=== PATIENT | female | born 1955 | race Caucasian/White ===

== ENCOUNTER 2020-10-04 11:50 | Inpatient (IN) | payer MEDICAID, MEDICARE, OTHER ==
[~2020-10-04] VITALS: Ht 144.8 cm; Wt 71.7 kg
[2020-10-04] MEDS ORDERED: SODIUM CHLORIDE 0.9% 1000ML BAG (SEPSIS BOLUS) IV ONE (12:45)
[2020-10-04] MEDS ORDERED: NITROGLYCERIN OINT 1GM/INCH UDPKT TD ONE (12:45)
[2020-10-04] MEDS ORDERED: ASPIRIN 81MG TABLET PO ONE (12:45)
[2020-10-04] MEDS ORDERED: FUROSEMIDE 40MG/4ML VIAL IV ONE (12:45)
[2020-10-04 13:21] LABS: BASOPHILS % 0.7 % (0.0-2.0); EOSINOPHILS % 3.7 % (0.0-5.0); HEMATOCRIT. 39.6 % (36.0-48.0); HEMOGLOBIN. 13.3 g/dL (12.0-16.0); LYMPHOCYTES % 21.7 % (20.0-50.0); MEAN CORPUSCULAR HEMOGLOBIN 29.6 pg (28.0-32.0); MEAN CORPUSCULAR VOLUME 88.4 fL (81.0-99.0); MEAN PLATELET VOLUME 9.1 fl (7.4-10.4); MONOCYTES % 4.8 % (2.0-8.0); NEUTROPHILS % 69.1 % (40.0-76.0); PLATELET 219 x1000/uL (130-400); RED BLOOD CELL COUNT 4.48 mill/uL (4.2-5.4); RED CELL DISTRIBUTION WIDTH 13.3 % (11.6-14.6)
[2020-10-04 13:23] LABS: CLARITY URINE CLEAR (CLEAR); COLOR URINE YELLOW (YELLOW); KETONES URINE NEGATIVE (NEGATIVE); LEUKOCYTE ESTERASE URINE NEGATIVE (NEGATIVE); NITRITE URINE NEGATIVE (NEGATIVE); OCCULT BLOOD URINE NEGATIVE (NEGATIVE); PROTEIN URINE NEGATIVE (NEGATIVE); SPECIFIC GRAVITY URINE 1.025 (1.005-1.030); UROBILINOGEN URINE 0.2 E.U./dL (0.2-1.0)
[2020-10-04 13:27] LABS: CHLORIDE 107 mEq/L (98-107)
[2020-10-04 15:13] LABS: PARTIAL THROMBOPLASTIN TIME 27.2 sec (23.4-31.0); PROTHROMBIN TIME 10.6 sec (9.6-11.0)
[2020-10-04] MEDS: SACUBITRIL/VALSARTAN 49MG/51MG TABLET PO SCH ×2 (15:28→21:56)
[2020-10-04] MEDS ORDERED: CLONIDINE 0.1MG TABLET PO PRN (17:45)
[2020-10-04] MEDS ORDERED: ONDANSETRON HCL 4MG/2ML INJ IV PRN (17:45)
[2020-10-04] MEDS ORDERED: DIPHENHYDRAMINE 50MG/ML VIAL IV PRN (17:45)
[2020-10-04] MEDS ORDERED: IPRATROPIUM/ALBUTEROL 0.5-3(2.5)MG/3ML NEB HHN PRN (17:45)
[2020-10-04] MEDS: ENOXAPARIN 40MG/0.4ML SYR SUBCUT SCH (18:24)
[2020-10-04] MEDS: CARVEDILOL 3.125 MG TABLET PO SCH (21:55)
[2020-10-04] MEDS: FUROSEMIDE 40MG/4ML VIAL IVP SCH (21:55)
[2020-10-05] VITALS (7 sets, daily range): BP systolic 100–133; BP diastolic 48–70
[2020-10-05] MEDS ORDERED: COR25 PO (02:00)
[2020-10-05] MEDS ORDERED: AMLO5TAB88 PO (02:00)
[2020-10-05] MEDS ORDERED: TOPUD PO (02:00)
[2020-10-05] MEDS ORDERED: ASPI-1497 PO (02:00)
[2020-10-05] MEDS ORDERED: FURO-151 PO (02:00)
[2020-10-05] MEDS ORDERED: ACET650T37 PO (02:00)
[2020-10-05] MEDS ORDERED: HYDR-4134 PO (02:00)
[2020-10-05] MEDS ORDERED: SACU1TAB7 PO (02:00)
[2020-10-05] MEDS: ACETAMINOPHEN 325MG TABLET PO PRN ×2 (02:59→12:42)
[2020-10-05 07:20] LABS: BASOPHILS % 0.3 % (0.0-2.0); EOSINOPHILS % 0.5 % (0.0-5.0); HEMATOCRIT. 44.6 % (36.0-48.0); HEMOGLOBIN. 14.9 g/dL (12.0-16.0); LYMPHOCYTES % 11.4 % (20.0-50.0); MEAN CORPUSCULAR HEMOGLOBIN 29.9 pg (28.0-32.0); MEAN CORPUSCULAR VOLUME 89.1 fL (81.0-99.0); MEAN PLATELET VOLUME 9.7 fl (7.4-10.4); MONOCYTES % 3.1 % (2.0-8.0); NEUTROPHILS % 84.7 % (40.0-76.0); PLATELET 242 x1000/uL (130-400); RED CELL DISTRIBUTION WIDTH 13.4 % (11.6-14.6)
[2020-10-05] MEDS: ASPIRIN 81MG TABLET PO SCH (09:27)
[2020-10-05] MEDS: CARVEDILOL 3.125 MG TABLET PO SCH ×2 (09:27→20:44)
[2020-10-05] MEDS: FUROSEMIDE 40MG/4ML VIAL IVP SCH ×2 (09:27→17:36)
[2020-10-05] MEDS: SACUBITRIL/VALSARTAN 49MG/51MG TABLET PO SCH ×2 (12:42→20:44)
[2020-10-05] MEDS: ENOXAPARIN 40MG/0.4ML SYR SUBCUT SCH (17:36)
[2020-10-05] MEDS ORDERED: ATORVASTATIN CALCIUM 10MG TABLET PO SCH (21:00)
[2020-10-05] MEDS: FAMOTIDINE 20MG TABLET PO SCH (21:32)
[2020-10-06] VITALS: BP 109/62
[2020-10-06 04:00] VITALS: BP 118/52
[2020-10-06 07:14] LABS: CHLORIDE 101 mEq/L (98-107)
[2020-10-06 07:15] LABS: BASOPHILS % 0.5 % (0.0-2.0); EOSINOPHILS % 6.3 % (0.0-5.0); HEMATOCRIT. 44.3 % (36.0-48.0); HEMOGLOBIN. 14.5 g/dL (12.0-16.0); LYMPHOCYTES % 27.3 % (20.0-50.0); MEAN CORPUSCULAR HEMOGLOBIN 29.4 pg (28.0-32.0); MEAN CORPUSCULAR VOLUME 89.6 fL (81.0-99.0); MEAN PLATELET VOLUME 9.7 fl (7.4-10.4); MONOCYTES % 5.1 % (2.0-8.0); NEUTROPHILS % 60.8 % (40.0-76.0); PLATELET 233 x1000/uL (130-400); RED BLOOD CELL COUNT 4.95 mill/uL (4.2-5.4); RED CELL DISTRIBUTION WIDTH 13.5 % (11.6-14.6)
[2020-10-06 08:00] VITALS: BP 115/49
[2020-10-06] MEDS: CARVEDILOL 3.125 MG TABLET PO SCH (08:10)
[2020-10-06] MEDS: FUROSEMIDE 40MG/4ML VIAL IVP SCH ×2 (08:11→17:10)
[2020-10-06] MEDS ORDERED: POTASSIUM CHLORIDE 20MEQ TABLET SR PO NR (08:30)
[2020-10-06] MEDS: FAMOTIDINE 20MG TABLET PO SCH (10:01)
[2020-10-06] MEDS: ASPIRIN 81MG TABLET PO SCH (10:01)
[2020-10-06] MEDS: SACUBITRIL/VALSARTAN 49MG/51MG TABLET PO SCH (10:01)
[2020-10-06] MEDS ORDERED: POTA20TA82 PO (11:57)
[2020-10-06] MEDS ORDERED: ATOR10TA PO (11:57)
[2020-10-06 12:00] VITALS: BP 109/49
[2020-10-06] MEDS ORDERED: GUAIFENESIN-DM 200MG-20MG/10ML UDC PO NR (15:45)
[2020-10-06 16:00] VITALS: BP 103/57
[2020-10-06] MEDS: ENOXAPARIN 40MG/0.4ML SYR SUBCUT SCH (17:11)
[2020-10-06 17:28] VITALS: BP 103/57
== END 2020-10-06 18:15 | disposition home or self-care (01) | DRG 133 ==
LOC: ER 11:50 → 5WST 17:19 → ENRESERV 22:06
PROVIDERS: ADMIT Internal Medicine; ATTEND Internal Medicine
DX: J96.00 Acute respiratory failure, unspecified whether with hypoxia or hypercapnia (principal); I50.23 Acute on chronic systolic (congestive) heart failure; I27.20 Pulmonary hypertension, unspecified; I42.0 Dilated cardiomyopathy; I11.0 Hypertensive heart disease with heart failure; E78.5 Hyperlipidemia, unspecified; I08.0 Rheumatic disorders of both mitral and aortic valves; E66.9 Obesity, unspecified; I47.1 Supraventricular tachycardia; Z20.822 Contact with and (suspected) exposure to COVID-19; Z68.34 Body mass index [BMI] 34.0-34.9, adult; Z79.82 Long term (current) use of aspirin; Z79.899 Other long term (current) drug therapy
CPT/HCPCS: 36415; 71045; 80048; 80053; 80061; 81003; 83605; 83735; 83880; 84145; 84443; 84484; 85025; 93005; 93970; 99285; C9803; J1650; J1940; J2405; J7030; U0003; U0005

== ENCOUNTER 2021-02-17 11:25 | Inpatient (IN) | payer MEDICARE, OTHER ==
[~2021-02-17] VITALS: Ht 154.9 cm; Wt 87.1 kg
[~2021-02-17 11:25] MED LIST: ACET650T37 PO; ASPI-1497 PO; ATOR10TA PO; FURO-151 PO; POTA20TA82 PO; SACU1TAB7 PO; TOPUD PO
[2021-02-17 12:23] LABS: BASOPHILS % 0.6 % (0.0-2.0); EOSINOPHILS % 3.9 % (0.0-5.0); HEMOGLOBIN. 12.5 g/dL (12.0-16.0); LYMPHOCYTES % 18.4 % (20.0-50.0); MEAN CORPUSCULAR HEMOGLOBIN 29.2 pg (28.0-32.0); MEAN CORPUSCULAR VOLUME 86.3 fL (81.0-99.0); MEAN PLATELET VOLUME 9.4 fl (7.4-10.4); MONOCYTES % 4.4 % (2.0-8.0); NEUTROPHILS % 72.7 % (40.0-76.0); PLATELET 216 x1000/uL (130-400); RED BLOOD CELL COUNT 4.28 mill/uL (4.2-5.4); RED CELL DISTRIBUTION WIDTH 13.4 % (11.6-14.6)
[2021-02-17] MEDS ORDERED: CARVEDILOL 12.5MG TABLET PO ONE (12:30)
[2021-02-17] MEDS ORDERED: NITROGLYCERIN OINT 1GM/INCH UDPKT TD ONE (12:30)
[2021-02-17] MEDS ORDERED: ASPIRIN 81MG TABLET PO ONE (12:30)
[2021-02-17] MEDS ORDERED: FUROSEMIDE 40MG/4ML VIAL IV ONE (12:30)
[2021-02-17] MEDS ORDERED: HYDRALAZINE HCL 100MG TABLET PO ONE (12:30)
[2021-02-17 12:32] LABS: CHLORIDE 106 mEq/L (98-107)
[2021-02-17 12:43] LABS: PARTIAL THROMBOPLASTIN TIME 24.8 sec (23.4-31.0); PROTHROMBIN TIME 11.2 sec (9.6-11.0)
[2021-02-17] MEDS ORDERED: ONDANSETRON HCL 4MG/2ML INJ IV PRN (18:00)
[2021-02-17] MEDS ORDERED: DEXTROSE 50% WATER 50ML SYRINGE IV PRN (18:00)
[2021-02-17] MEDS ORDERED: ACETAMINOPHEN 325MG TABLET PO PRN (18:00)
[2021-02-17] MEDS ORDERED: ACETAMINOPHEN 650MG/20.3ML UDC GT PRN ×2 (18:00)
[2021-02-17] MEDS ORDERED: DIPHENHYDRAMINE 50MG/ML VIAL IV PRN (18:00)
[2021-02-17] MEDS ORDERED: CLONIDINE 0.1MG TABLET PO PRN (18:00)
[2021-02-17] MEDS ORDERED: ACETAMINOPHEN 650MG SUPP PR PRN ×2 (18:00)
[2021-02-17] MEDS ORDERED: DOCUSATE SODIUM 100MG CAPSULE PO PRN (18:00)
[2021-02-17] MEDS ORDERED: NA PHOS,M-B/NA PHOS,DI-BA ENEMA 118ML PR PRN (18:00)
[2021-02-17] MEDS ORDERED: MAGNESIUM/ALUMINUM HYDROXIDE/SIMETHICONE 30ML UDC PO PRN (18:00)
[2021-02-17] MEDS ORDERED: INSULIN LISPRO 100 UNITS/ML SUBCUT SCH (18:20)
[2021-02-17 19:00] VITALS: BP 177/83
[2021-02-17 20:00] VITALS: BP 177/83
[2021-02-17] MEDS: ACETAMINOPHEN 325MG TABLET PO PRN (21:19)
[2021-02-17] MEDS: ENOXAPARIN 40MG/0.4ML SYR SUBCUT SCH (21:20)
[2021-02-17] MEDS: INSULIN LISPRO 100 UNITS/ML SUBCUT SCH (21:22)
[2021-02-17] MEDS: BLOOD SUGAR DIAGNOSTIC STRIP TEST SCH (21:23)
[2021-02-17] MEDS ORDERED: NEOAPJ PO (23:06)
[2021-02-17] MEDS ORDERED: HYDR100T26 PO (23:08)
[2021-02-17] MEDS ORDERED: CARV25TA47 PO (23:19)
[2021-02-17] MEDS ORDERED: TIOT18CA3 IH (23:21)
[2021-02-17] MEDS ORDERED: *PATIENT'S OWN MEDICATION STORAGE XX SCH (23:45)
[2021-02-18] VITALS: BP 123/53
[2021-02-18 00:50] LABS: CREATINE KINASE MB FRACTION 1.1 ng/mL (0.5-3.6)
[2021-02-18 04:00] VITALS: BP 158/74
[2021-02-18 06:03] LABS: BASOPHILS % 0.5 % (0.0-2.0); EOSINOPHILS % 4.4 % (0.0-5.0); HEMATOCRIT. 38.2 % (36.0-48.0); HEMOGLOBIN. 12.5 g/dL (12.0-16.0); LYMPHOCYTES % 23.8 % (20.0-50.0); MEAN CORPUSCULAR HEMOGLOBIN 28.8 pg (28.0-32.0); MEAN CORPUSCULAR VOLUME 87.9 fL (81.0-99.0); MEAN PLATELET VOLUME 10.1 fl (7.4-10.4); MONOCYTES % 4.1 % (2.0-8.0); NEUTROPHILS % 67.2 % (40.0-76.0); PLATELET 211 x1000/uL (130-400); RED BLOOD CELL COUNT 4.35 mill/uL (4.2-5.4); RED CELL DISTRIBUTION WIDTH 13.5 % (11.6-14.6)
[2021-02-18 06:28] LABS: CHLORIDE 103 mEq/L (98-107)
[2021-02-18 06:38] LABS: LDL CHOLESTEROL 79 mg/dL (5-100)
[2021-02-18 06:39] LABS: CREATINE KINASE 165 IU/L (26-192); CREATINE KINASE MB FRACTION 1.1 ng/mL (0.5-3.6); HDL CHOLESTEROL 43 mg/dL (40-59)
[2021-02-18] MEDS: BLOOD SUGAR DIAGNOSTIC STRIP TEST SCH ×4 (06:40→20:03)
[2021-02-18] MEDS: INSULIN LISPRO 100 UNITS/ML SUBCUT SCH ×4 (06:40→20:03)
[2021-02-18] MEDS: ACETAMINOPHEN 325MG TABLET PO PRN ×2 (06:44→20:09)
[2021-02-18 08:00] VITALS: BP 117/63
[2021-02-18] MEDS: FUROSEMIDE 40MG/4ML VIAL IV SCH (10:01)
[2021-02-18] MEDS: FAMOTIDINE 20MG/2ML VIAL IV SCH (10:01)
[2021-02-18 12:00] VITALS: BP 128/71
[2021-02-18 13:07] LABS: CLARITY URINE CLEAR (CLEAR); KETONES URINE NEGATIVE (NEGATIVE); LEUKOCYTE ESTERASE URINE NEGATIVE (NEGATIVE); NITRITE URINE NEGATIVE (NEGATIVE); OCCULT BLOOD URINE NEGATIVE (NEGATIVE); PH URINE 6.5 (4.5-8.0); PROTEIN URINE NEGATIVE (NEGATIVE); SPECIFIC GRAVITY URINE 1.006 (1.005-1.030); UROBILINOGEN URINE 0.2 E.U./dL (0.2-1.0)
[2021-02-18 13:09] LABS: COLOR URINE PALE YELLOW (YELLOW)
[2021-02-18 13:27] LABS: *AMPHETAMINES SCREEN URINE NEGATIVE (NEGATIVE); *BARBITURATES SCREEN URINE NEGATIVE (NEGATIVE); *BENZODIAZEPINES SCREEN URINE NEGATIVE (NEGATIVE); *COCAINE SCREEN URINE NEGATIVE (NEGATIVE)
[2021-02-18 14:47] LABS: CANNABINOID URINE SCREEN NEGATIVE (NEGATIVE); METHADONE URINE SCREEN NEGATIVE (NEGATIVE); OPIATES URINE SCREEN NEGATIVE (NEGATIVE); PHENCYCLIDINE URINE SCREEN NEGATIVE (NEGATIVE)
[2021-02-18 16:00] VITALS: BP 155/77
[2021-02-18 20:00] VITALS: BP 152/67
[2021-02-18] MEDS: ENOXAPARIN 40MG/0.4ML SYR SUBCUT SCH (20:03)
[2021-02-19] VITALS: BP 143/53
[2021-02-19 04:00] VITALS: BP 138/62
[2021-02-19 06:10] LABS: HEMATOCRIT. 40.4 % (36.0-48.0); HEMOGLOBIN. 13.3 g/dL (12.0-16.0); MEAN CORPUSCULAR VOLUME 88.6 fL (81.0-99.0); MEAN PLATELET VOLUME 9.7 fl (7.4-10.4); PLATELET 231 x1000/uL (130-400); RED BLOOD CELL COUNT 4.56 mill/uL (4.2-5.4); RED CELL DISTRIBUTION WIDTH 13.7 % (11.6-14.6)
[2021-02-19] MEDS: BLOOD SUGAR DIAGNOSTIC STRIP TEST SCH ×2 (06:39→12:08)
[2021-02-19] MEDS: INSULIN LISPRO 100 UNITS/ML SUBCUT SCH ×2 (06:42→12:08)
[2021-02-19 07:16] LABS: CHLORIDE 102 mEq/L (98-107)
[2021-02-19 08:00] VITALS: BP 155/61
[2021-02-19] MEDS: FUROSEMIDE 40MG/4ML VIAL IV SCH (08:47)
[2021-02-19] MEDS: FAMOTIDINE 20MG/2ML VIAL IV SCH (08:48)
[2021-02-19 12:00] VITALS: BP 124/67
[2021-02-19 14:19] VITALS: BP 124/67
[2021-02-19 18:43] LABS: PLATELET ESTIMATE NORMAL
== END 2021-02-19 16:11 | disposition home or self-care (01) | DRG 291 ==
LOC: ER 11:25 → 8WST 15:46 → EDBEDREQ 15:49 → ENRESERV 17:51
PROVIDERS: ADMIT Family Medicine; ATTEND Family Medicine
DX: I11.0 Hypertensive heart disease with heart failure (principal); J96.01 Acute respiratory failure with hypoxia; I50.21 Acute systolic (congestive) heart failure; E11.9 Type 2 diabetes mellitus without complications; Z20.822 Contact with and (suspected) exposure to COVID-19; E66.9 Obesity, unspecified; Z68.35 Body mass index [BMI] 35.0-35.9, adult
CPT/HCPCS: 36415; 71045; 80048; 80053; 80061; 80305; 81003; 82550; 82553; 82962; 83036; 83880; 84439; 84443; 84484; 85025; 87426; 93005; 99285; J1650; J1815; J1940; J3490